=== PATIENT | male | born 1985 | race Caucasian/White ===

== ENCOUNTER 2019-11-28 22:46 | Emergency (ER) | payer MEDICAID ==
[~2019-11-28] VITALS: Ht 175.3 cm; Wt 80.0 kg
[2019-11-28 22:47] VITALS: BP 134/82
== END 2019-11-28 23:20 ==
LOC: ER 22:47
DX: F12.90 Cannabis use, unspecified, uncomplicated (principal); F17.200 Nicotine dependence, unspecified, uncomplicated; Z72.89 Other problems related to lifestyle; V98.8XXA Other specified transport accidents, initial encounter; Y93.89 Activity, other specified; Y92.89 Other specified places as the place of occurrence of the external cause; Y99.8 Other external cause status
CPT/HCPCS: 99283

== ENCOUNTER 2020-01-17 11:51 | Emergency (ER) | payer MEDICAID ==
[~2020-01-17] VITALS: Ht 175.3 cm; Wt 75.6 kg
[~2020-01-17 11:51] MED LIST: LIDOcaine 1% W/epiNEPHrine 1:200,000 10ml vial ONE
[2020-01-17 11:56] VITALS: BP 124/56
--- NOTE | 2020-01-17 13:12 | NUR ---
pt is 34 yo male c/o abscess to lateral left foot since , +redness, swelling, pain, no drainage, pt was working outside in [employer], self treated at home with warm compress once and attempted to I&D, amb with steady gait, tetanus is up to date, waiting to be evaluated provider
[2020-01-17] MEDS ORDERED: CEPH-572 PO (14:05)
[2020-01-17] MEDS ORDERED: SULF1TAB49 PO (14:05)
== END 2020-01-17 14:15 | disposition home or self-care (01) ==
LOC: ER 11:52
DX: L02.612 Cutaneous abscess of left foot (principal); F12.90 Cannabis use, unspecified, uncomplicated; Z72.89 Other problems related to lifestyle; Z88.0 Allergy status to penicillin; Z79.899 Other long term (current) drug therapy
CPT/HCPCS: 10060; 99283